=== PATIENT | female | born 1985 | race Caucasian/White ===

== ENCOUNTER 2017-03-06 13:47 | Inpatient (IN) | payer OTHER ==
[~2017-03-06] VITALS: Ht 165.1 cm; Wt 70.5 kg
[2017-03-06 13:54] VITALS: BP 126/79
[2017-03-06] MEDS ORDERED: FENTANYL/BUPIV./NS/PF 250 ML EPIDCONT SCH ×2 (15:52→18:26)
[2017-03-06] MEDS: D5%-LACTATED RINGERS 1,000 ML IV SCH ×2 (15:52→23:52)
[2017-03-06] MEDS: LACTATED RINGERS 1,000 ML IV SCH ×3 (15:52→23:52)
[2017-03-06] MEDS ORDERED: OXYTOCIN 30U/ 0.9% NaCL 500ML 500 ML IV ONE (15:52)
[2017-03-06] MEDS ORDERED: LACTATED RINGERS 1,000 ML IVBOLUS PRN ×2 (16:00→18:30)
[2017-03-06] MEDS ORDERED: FENTANYL PF 100 MCG/2ML IVPush PRN (16:00)
[2017-03-06] MEDS ORDERED: FENTANYL PF 100 MCG/2ML IV PRN (16:00)
[2017-03-06] MEDS ORDERED: OXYTOCIN 30U/ 0.9% NaCL 500ML 500 ML ONE (16:02)
[2017-03-06] MEDS ORDERED: LIDOCAINE 1%, 20ML ONE ×2 (16:02→17:37)
[2017-03-06] MEDS ORDERED: MISOPROSTOL 200 MCG TABLET ONE (16:02)
[2017-03-06] MEDS ORDERED: NEWBORN KIT ONE (16:02)
[2017-03-06] MEDS ORDERED: FENTANYL/BUPIV./NS/PF 250 ML EPIDCONT ONE ×2 (17:25→17:37)
[2017-03-06] MEDS ORDERED: LIDOCAINE/PF 1.5%-EPI 1:200K, 30ML ONE (17:37)
[2017-03-06] MEDS ORDERED: EPHEDRINE 50 MG/ML, 1ML IVPush PRN (18:30)
[2017-03-06] MEDS ORDERED: NALOXONE 0.4 MG/ML, 1ML IVPush PRN (18:30)
[2017-03-06] MEDS: OXYTOCIN 30U/ 0.9% NaCL 500ML 500 ML IV SCH (18:53)
[2017-03-06] MEDS ORDERED: OXYcodone/APAP 5/325MG TABLET PO PRN (19:00)
[2017-03-06] MEDS ORDERED: RHOGAM FROM BLOOD BANK 1 NOTE EA IM/IV ONE (19:00)
[2017-03-06] MEDS ORDERED: MEASLES,MUMPS&RUBELLA VACC/PF 0.5 ML SQ PRN (19:00)
[2017-03-06] MEDS ORDERED: CALCIUM CARBONATE 500 MG TAB.CHEW PO PRN (19:00)
[2017-03-06] MEDS ORDERED: MISOPROSTOL 200 MCG TABLET PR PRN (19:00)
[2017-03-06] MEDS ORDERED: MAGNESIUM HYDROXIDE 8%, 30ML UDC PO PRN (19:00)
[2017-03-06] MEDS ORDERED: ONDANSETRON 2MG/ML, 2ML IV PRN (19:00)
[2017-03-06] MEDS ORDERED: DIPH,PERTUSS(ACELL),TET VAC/PF NC IM-VACC PRN (19:00)
[2017-03-06] MEDS ORDERED: ACETAMINOPHEN 325 MG TABLET PO PRN ×2 (19:00)
[2017-03-07 01:35] VITALS: BP 109/63
[2017-03-07] MEDS: IBUPROFEN 600 MG TABLET PO PRN ×3 (01:46→16:45)
[2017-03-07] MEDS: LACTATED RINGERS 1,000 ML IV SCH (02:26)
[2017-03-07] MEDS: OXYTOCIN 30U/ 0.9% NaCL 500ML 500 ML IV SCH ×2 (04:53→14:53)
[2017-03-07 05:40] VITALS: BP 99/61
[2017-03-07] MEDS: OXYcodone/APAP 5/325MG TABLET PO PRN ×4 (06:45→20:45)
[2017-03-07 07:45] VITALS: BP 113/72
[2017-03-07] MEDS: PRENATAL VIT/IRON/FA 1 EACH TABLET PO SCH (09:45)
[2017-03-07] MEDS: DOCUSATE 100 MG CAPSULE PO PRN (09:45)
[2017-03-07 12:20] VITALS: BP 106/69
[2017-03-07 16:20] VITALS: BP 109/70
[2017-03-07 21:00] VITALS: BP 119/77
[2017-03-08] MEDS: OXYcodone/APAP 5/325MG TABLET PO PRN ×3 (00:49→10:06)
[2017-03-08] MEDS: IBUPROFEN 600 MG TABLET PO PRN ×2 (00:49→08:33)
[2017-03-08 07:40] VITALS: BP 110/74
[2017-03-08] MEDS: PRENATAL VIT/IRON/FA 1 EACH TABLET PO SCH (08:32)
[2017-03-08] MEDS: DOCUSATE 100 MG CAPSULE PO PRN (08:32)
[2017-03-08] MEDS ORDERED: OXYC-302 PO (09:44)
[2017-03-08] MEDS ORDERED: DOCU-30 PO (09:45)
[2017-03-08] MEDS ORDERED: IBUP-1222 PO (09:45)
== END 2017-03-08 14:25 | disposition home or self-care (01) | DRG 775 ==
LOC: LDOP 13:47 → LDIP 15:55 → 2NW 03-07 01:18
PROVIDERS: ADMIT Obstetrics & Gynecology; ATTEND Obstetrics & Gynecology
PROC: 10E0XZZ Delivery of Products of Conception, External Approach (ICD-10-PCS; principal; 2017-03-06)
PROC: 0KQM0ZZ Repair Perineum Muscle, Open Approach (ICD-10-PCS; 2017-03-06)
PROC: 10907ZC Drainage of Amniotic Fluid, Therapeutic from Products of Conception, Via Natural or Artificial Opening (ICD-10-PCS; 2017-03-06)
PROC: 00HU33Z Insertion of Infusion Device into Spinal Canal, Percutaneous Approach (ICD-10-PCS; 2017-03-06)
PROC: 3E0R3CZ (ICD-10-PCS; 2017-03-06)
DX: O69.1XX0 Labor and delivery complicated by cord around neck, with compression, not applicable or unspecified (principal); O70.1 Second degree perineal laceration during delivery; Z37.0 Single live birth; Z3A.37 37 weeks gestation of pregnancy
CPT/HCPCS: 36415; 85025; 86850; 86900; J3490; J3010

== ENCOUNTER 2017-03-13 06:23 | Inpatient (IN) | payer OTHER ==
[~2017-03-13] VITALS: Ht 165.1 cm; Wt 69.9 kg
[~2017-03-13 06:23] MED LIST: DOCU-30 PO; IBUP-1222 PO; OXYC-302 PO
[2017-03-13] MEDS ORDERED: SODIUM CHLORIDE FLUSH 10ML SYR IVF ONE (07:30)
[2017-03-13] MEDS ORDERED: ONDANSETRON 2MG/ML, 2ML ONE (07:38)
[2017-03-13 07:39] LABS: ASPARTATE AMINO TRANSFERASE 39 U/L (15-37); BLOOD UREA NITROGEN 12 mg/dL (7-18)
[2017-03-13] MEDS ORDERED: ONDANSETRON 2MG/ML, 2ML IVPush ONE (08:00)
[2017-03-13] MEDS ORDERED: DIPHENHYDRAMINE 50 MG/ML, 1ML IVPush ONE (08:30)
[2017-03-13] MEDS ORDERED: KETOROLAC 30 MG/1 ML IVPush ONE (08:30)
[2017-03-13] MEDS ORDERED: KETOROLAC 30 MG/1 ML ONE (08:31)
[2017-03-13] MEDS ORDERED: DIPHENHYDRAMINE 50 MG/ML, 1ML ONE (08:31)
[2017-03-13] MEDS ORDERED: METOCLOPRAMIDE 5 MG/ML, 2ML ONE (08:36)
[2017-03-13] MEDS ORDERED: SODIUM CHLORIDE 0.9% 1,000ML IVBOLUS ONE (09:00)
[2017-03-13] MEDS ORDERED: METOCLOPRAMIDE 5 MG/ML, 2ML IVPush ONE (09:00)
[2017-03-13] MEDS ORDERED: MORPHINE SULFATE 4 MG/ML, 1ML ONE (09:21)
[2017-03-13] MEDS ORDERED: MORPHINE SULFATE 4 MG/ML, 1ML IVPush ONE (09:30)
[2017-03-13] MEDS ORDERED: hydrALAzine 20 MG/ML, 1ML ONE (10:44)
[2017-03-13] MEDS ORDERED: SODIUM CHLORIDE FLUSH 10ML SYR IVF PRN (11:00)
[2017-03-13] MEDS ORDERED: hydrALAzine 20 MG/ML, 1ML IV ONE (11:00)
[2017-03-13 11:28] VITALS: BP 154/74
[2017-03-13] MEDS ORDERED: MAGNESIUM SULF. PMX 20GM/500ML 500 ML IV ONE ×2 (12:23→20:02)
[2017-03-13] MEDS: MAGNESIUM SULF. PMX 20GM/500ML 500 ML IV SCH ×3 (12:44→20:07)
[2017-03-13] MEDS ORDERED: MAGNESIUM SULFATE PMX 4GM/100M 100 ML IVPB ONE (13:00)
[2017-03-13] MEDS: LACTATED RINGERS 1,000 ML IV PRN ×2 (13:03→21:27)
[2017-03-13] MEDS ORDERED: OXYcodone/APAP 5/325MG TABLET ONE ×3 (14:19→22:07)
[2017-03-13] MEDS: OXYcodone/APAP 5/325MG TABLET PO PRN ×3 (14:20→22:10)
[2017-03-13] MEDS ORDERED: ACETAMINOPHEN 325 MG TABLET PO PRN (15:30)
[2017-03-13] MEDS ORDERED: CALCIUM CARBONATE 500 MG TAB.CHEW PO PRN (15:30)
[2017-03-13 19:16] LABS: BLOOD UREA NITROGEN 8 mg/dL (7-18)
[2017-03-13 19:19] LABS: ASPARTATE AMINO TRANSFERASE 30 U/L (15-37)
[2017-03-13] MEDS ORDERED: DOCUSATE 100 MG CAPSULE ONE (22:08)
[2017-03-13] MEDS: DOCUSATE 100 MG CAPSULE PO SCH (22:10)
[2017-03-14] MEDS ORDERED: OXYcodone/APAP 5/325MG TABLET ONE ×2 (03:07→08:01)
[2017-03-14] MEDS: OXYcodone/APAP 5/325MG TABLET PO PRN ×2 (03:09→08:04)
[2017-03-14 05:32] LABS: BLOOD UREA NITROGEN 6 mg/dL (7-18)
[2017-03-14] MEDS ORDERED: MAGNESIUM SULF. PMX 20GM/500ML 500 ML IV ONE (05:32)
[2017-03-14 05:37] LABS: ASPARTATE AMINO TRANSFERASE 28 U/L (15-37)
[2017-03-14] MEDS: MAGNESIUM SULF. PMX 20GM/500ML 500 ML IV SCH (05:38)
[2017-03-14] MEDS: LACTATED RINGERS 1,000 ML IV PRN (05:39)
[2017-03-14] MEDS ORDERED: KETOROLAC 30 MG/1 ML ONE ×2 (08:25→14:34)
[2017-03-14] MEDS: KETOROLAC 30 MG/1 ML IVPush PRN ×2 (08:30→14:36)
[2017-03-14] MEDS ORDERED: PRENATAL VIT/IRON/FA 1 EACH TABLET PO SCH (09:00)
[2017-03-14] MEDS ORDERED: DOCUSATE 100 MG CAPSULE ONE (09:49)
[2017-03-14] MEDS ORDERED: PRENATAL VIT/IRON/FA 1 EACH TABLET ONE (09:50)
[2017-03-14] MEDS: DOCUSATE 100 MG CAPSULE PO SCH (09:52)
== END 2017-03-14 17:00 | disposition home or self-care (01) | DRG 776 ==
LOC: ED 07:32 → EDIP 10:46 → LDIP 12:04
PROVIDERS: ADMIT Obstetrics & Gynecology; ATTEND Obstetrics & Gynecology
DX: O14.95 Unspecified pre-eclampsia, complicating the puerperium (principal)
CPT/HCPCS: 36415; 70546; 80053; 81001; 83735; 84550; 85025; 85610; 85730; 87086; 96361; 96374; 96375; J1885; J2405; J0360; J1200; J2765; J3475; J7030; J7120